=== PATIENT | female | born 1950 | race Caucasian/White ===

== ENCOUNTER → 2021-08-06 09:13 | Outpatient (CLI) | payer MEDICARE, SELFPAY ==
[2021-08-06 10:55] LABS: Add Manual Diff / Slide Review NO; Basophils Absolute Auto 100 /uL (0-100); Basophils Percent Auto 1.2 % (0-2); Eosinophils Absolute Auto 300 /uL (0-450); Eosinophils Percent Auto 7.6 % (2-4); Hemoglobin 12.3 g/dL (12.0-16.0); Lymphocytes Absolute Auto 1400 /uL (1100-4500); Lymphocytes Percent Auto 32.7 % (25-40); Mean Corpuscular HGB Conc 34.2 % (30-36); Mean Corpuscular Hemoglobin 31.3 PG (26-34); Mean Corpuscular Volume 91.5 fL (80-100); Monocytes Absolute Auto 500 /uL (0-900); Monocytes Percent Auto 11.9 % (3-14); Neutrophils Absolute Auto 1900 /uL (1500-7000); Neutrophils Percent Auto 46.6 % (50-75); Platelet Count 233 X10^3/uL (150-400); Red Blood Cell Count 3.93 X10^6/uL (4.0-5.2); Red Cell Distribution Width 12.8 % (11.6-14.8); White Blood Cell Count 4.1 X10^3/uL (4.5-11.0)
[2021-08-06 11:12] LABS: Alanine Aminotransferase 20 IU/L (<35); Albumin 4.4 g/dL (3.5-5.0); Albumin Globulin Ratio 1.5 (1.0-2.8); Alkaline Phosphatase 54 U/L (38-126); Aspartate Aminotransferase 29 IU/L (14-36); BUN Creatinine Ratio 22.4 (6-22); Bilirubin Total 0.4 mg/dL (0.2-1.3); Blood Urea Nitrogen 17 mg/dL (7-17); Calcium 9.3 mg/dL (8.4-10.2); Carbon Dioxide 25 mmol/L (22-32); Chloride 105 mmol/L (98-107); Estimated Glomerular Filt Rate > 60 mL/min (>60); Glucose 100 mg/dL (80-110); HEMOLYSIS < 15 (0-50); Potassium 4.8 mmol/L (3.4-5.1); Sodium 139 mmol/L (137-145); Total Protein 7.4 g/dL (6.3-8.2)
[2021-08-06 11:16] LABS: Prothrombin Time 11.5 SECONDS (10.1-12.7)
[2021-08-06 11:18] LABS: PTT Partial Thromboplastin Tim 32 SECONDS (26.4-36.2)
[2021-08-06 11:39] LABS: TSH w/ Reflex to FT4 3.38 uIU/mL (0.47-4.68)
== END ==
PROVIDERS: Referring Provider Physician Assistant; Visit Provider Physician Assistant
DX: T14.8XXA Other injury of unspecified body region, initial encounter (principal)
CPT/HCPCS: 36415; 80053; 84443; 85025; 85610; 85730

== ENCOUNTER → 2023-06-28 17:07 | Outpatient (CLI) | payer OTHER, SELFPAY ==
--- NOTE | 2023-06-28 | DI.MG.S_ITS ---
BILATERAL DIGITAL SCREENING MAMMOGRAM 3D/2D WITH CAD: 06/28/2023 CLINICAL: Routine screening. No prior exams were available for comparison. There are scattered areas of fibroglandular density in both breasts (category b / 25%-50% glandular tissue). Current study was also evaluated with a Computer Aided Detection (CAD) system. There are grouped calcifications in the right breast at 11 o'clock middle depth. No other significant masses, calcifications, or other findings are seen in either breast. IMPRESSION: INCOMPLETE: NEEDS ADDITIONAL IMAGING EVALUATION The grouped calcifications in the right breast are indeterminate. Magnification and lateromedial views as well as additional views with possible ultrasound are recommended. Based on the Tyrer Cuzick model (a risk assessment model) the patient's lifetime risk is 4.5% and her 10 year risk is 2.8%. According to the ACR, ACS, and NCCN guidelines, an annual breast MRI exam along with mammogram is recommended if the patient's lifetime risk is 20% or greater. This exam was interpreted at Station ID: [id number]. NOTE: For mammograms, a report in lay terms will be sent to the patient. Approximately 15% of breast malignancies will not be visualized mammographically. In the management of a palpable breast mass, a negative mammogram must not discourage biopsy of a clinically suspicious lesion. Electronically Signed By: Diane aviles/keith:07/04/2023 16:00:05 letter sent: Additional Imaging Needed ACR BI-RADS Category 0: Incomplete 3340F
== END ==
LOC: MAMMO 17:07
PROVIDERS: PCP Family Medicine; Referring Provider Family Medicine; Visit Provider Family Medicine
DX: Z12.31 Encounter for screening mammogram for malignant neoplasm of breast (principal); R92.323 Mammographic fibroglandular density, bilateral breasts
CPT/HCPCS: 77063; 77067

== ENCOUNTER → 2023-10-24 16:54 | Outpatient (CLI) | payer OTHER, SELFPAY ==
--- NOTE | 2023-10-24 16:56 | DI.RAD.S_ITS ---
PROCEDURE: XR FOOT LT MIN 3V INDICATIONS: Left foot and ankle injury TECHNIQUE: 3 views of the foot were acquired. COMPARISON: None. FINDINGS: Bones: No fractures or dislocations. No suspicious bony lesions. Soft tissues: No tibiotalar joint effusion. Achilles tendon appears normal. IMPRESSION: No acute osseous abnormality. If pain persists with conservative management, consider repeat x-ray in 10-14 days or cross-sectional imaging. Dictated by: Quentin Boyd M.D. on 10/24/2023 at 17:23 Approved by: Quentin Boyd M.D. on 10/24/2023 at 17:24
--- NOTE | 2023-10-24 16:56 | DI.RAD.S_ITS ---
PROCEDURE: XR ANKLE LT MIN 3V INDICATIONS: Left foot and ankle injury TECHNIQUE: 3 views of the ankle were acquired. COMPARISON: None. FINDINGS: Bones: No fractures or dislocations. Ankle mortise is normally aligned. No suspicious bony lesions. Prominent plantar calcaneal enthesophyte. Soft tissues: No tibiotalar joint effusion. Achilles tendon appears normal. IMPRESSION: No acute osseous abnormality. If pain persists with conservative management, consider repeat x-ray in 10-14 days or cross-sectional imaging. Dictated by: Quentin Boyd M.D. on 10/24/2023 at 17:23 Approved by: Quentin Boyd M.D. on 10/24/2023 at 17:23
== END ==
LOC: RAD 16:55
PROVIDERS: PCP Family Medicine; Referring Provider Physician Assistant Surgical; Visit Provider Physician Assistant Surgical
DX: S99.912A Unspecified injury of left ankle, initial encounter (principal); S99.922A Unspecified injury of left foot, initial encounter; X58.XXXA Exposure to other specified factors, initial encounter
CPT/HCPCS: 73610; 73630

== ENCOUNTER → 2023-11-07 08:10 | Outpatient (CLI) | payer OTHER, SELFPAY ==
--- NOTE | 2023-11-07 08:12 | DI.RAD.S_ITS ---
PROCEDURE: XR KNEE LT 3V INDICATIONS: left ankle and knee pain from fall TECHNIQUE: 3 views of the knee were acquired. COMPARISON: None. FINDINGS: Bones: No fractures or dislocations. No suspicious bony lesions. Soft tissues: No joint effusion. No suspicious soft tissue calcifications. IMPRESSION: No acute bony abnormality or significant effusion. Approved by: Barry Cuellar M.D. on 11/07/2023 at 18:01
--- NOTE | 2023-11-07 08:12 | DI.RAD.S_ITS ---
PROCEDURE: XR ANKLE LT MIN 3V INDICATIONS: left ankle and knee pain from fall TECHNIQUE: 3 views of the ankle were acquired. COMPARISON: [facility], CR, XR ANKLE LT MIN 3V, 10/24/2023, 16:54. FINDINGS: Bones: Small osteochondral defect in the dome of the talus noted medially. No evidence of fracture. Calcaneal spur moderate. Normal bone mineralization Soft tissues: No tibiotalar joint effusion. Achilles tendon appears normal. IMPRESSION: Probable talar osteochondral defect. Consider follow-up MRI Approved by: Barry Cuellar M.D. on 11/07/2023 at 18:01
[2023-11-07 09:44] LABS: Add Manual Diff / Slide Review NO; Basophils Absolute Auto 100 /uL (0-100); Basophils Percent Auto 1.3 % (0-2); Eosinophils Absolute Auto 200 /uL (0-450); Eosinophils Percent Auto 5.1 % (2-4); Hemoglobin 12.3 g/dL (12.0-16.0); Lymphocytes Absolute Auto 1300 /uL (1100-4500); Lymphocytes Percent Auto 27.9 % (25-40); Mean Corpuscular Volume 91.2 fL (80-100); Monocytes Absolute Auto 500 /uL (0-900); Monocytes Percent Auto 9.7 % (3-14); Neutrophils Absolute Auto 2700 /uL (1500-7000); Platelet Count 249 X10^3/uL (150-400); Red Blood Cell Count 3.95 X10^6/uL (4.0-5.2); Red Cell Distribution Width 12.9 % (11.6-14.8); White Blood Cell Count 4.8 X10^3/uL (4.5-11.0)
[2023-11-07 10:14] LABS: Alanine Aminotransferase 17 IU/L (<35); Albumin 4.2 g/dL (3.5-5.0); Albumin Globulin Ratio 1.6 (1.0-2.8); Alkaline Phosphatase 52 U/L (38-126); Aspartate Aminotransferase 24 IU/L (14-36); BUN Creatinine Ratio 15.2 (6-22); Bilirubin Total 0.4 mg/dL (0.2-1.3); Blood Urea Nitrogen 14 mg/dL (7-17); Calcium 9.3 mg/dL (8.4-10.2); Carbon Dioxide 24 mmol/L (22-32); Chloride 108 mmol/L (98-107); Estimated Glomerular Filt Rate > 60 mL/min (>60); Globulin 2.6 g/dL (1.7-4.1); Glucose 112 mg/dL (80-110); HEMOLYSIS < 15 (0-50); Potassium 4.4 mmol/L (3.4-5.1); Sodium 141 mmol/L (137-145); Total Protein 6.8 g/dL (6.3-8.2)
[2023-11-07 10:16] LABS: Hemoglobin A1C% w Est Avg Glu 5.9 % (4.0-6.0)
== END ==
PROVIDERS: PCP Family Medicine; Referring Provider Family Medicine; Visit Provider Family Medicine
DX: M25.562 Pain in left knee (principal); R73.9 Hyperglycemia, unspecified; M25.572 Pain in left ankle and joints of left foot; D64.9 Anemia, unspecified
CPT/HCPCS: 36415; 73562; 73610; 80053; 83036; 85025

== ENCOUNTER → 2023-11-07 12:15 | Outpatient (CLI) | payer OTHER, SELFPAY ==
--- NOTE | 2023-11-07 13:00 | DI.MRI.S_ITS ---
PROCEDURE: MR KNEE LT WO CON INDICATIONS: left knee pain from fall TECHNIQUE: Noncontrast sagittal PD fast spin echo and T2 fast spin echo with fat saturation, sagittal 3-D FLASH with fat saturation; coronal T1 spin echo and PD fast spin echo with fat saturation, and axial PD fast spin echo with fat saturation through the knee. COMPARISON: None. FINDINGS: Image quality: Excellent. There is an oblique tear involving the posterior horn and body of the patient's medial meniscus extending to the inferior joint surface. Lateral meniscus, ACL and PCL, collateral ligaments, and extensor mechanism appear within normal limits. 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 There is also some mild chondromalacia involving the patellofemoral joint. No significant knee joint effusion is seen. Tiny Jensen's cyst is present. There is some nonspecific marrow edema involving the posterior aspect of the medial tibial plateau likely degenerative in nature. IMPRESSION: 1. Oblique tear involving the posterior horn and body of the patient's medial meniscus extending to the inferior joint surface. 2. 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 3. Mild chondromalacia patellofemoral joint. 4. Tiny Jensen's cyst. 5. Nonspecific marrow edema posterior aspect of the medial tibial plateau felt to be degenerative in nature. Dictated by: Jesus Sloan M.D. on 11/07/2023 at 17:03 Approved by: Jesus Sloan M.D. on 11/07/2023 at 17:10
== END ==
PROVIDERS: PCP Family Medicine; Referring Provider Family Medicine; Visit Provider Family Medicine
DX: S83.242A Other tear of medial meniscus, current injury, left knee, initial encounter (principal); M22.42 Chondromalacia patellae, left knee; M25.562 Pain in left knee; M25.572 Pain in left ankle and joints of left foot; D64.9 Anemia, unspecified; R73.9 Hyperglycemia, unspecified; Z87.828 Personal history of other (healed) physical injury and trauma
CPT/HCPCS: 36415; 73562; 73610; 73721; 80053; 83036; 85025

== ENCOUNTER 2023-12-22 09:45 | Outpatient (RCR) | payer OTHER, SELFPAY ==
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
--- NOTE | 2023-12-08 16:46 | PT.OPPOC ---
Physical, Occupational & Speech Therapy At [facility] Current Diagnoses Other instability, left knee (12/13/23) Stiffness of unspecified knee, not elsewhere classified (12/13/23) Stiffness of left ankle, not elsewhere classified (12/13/23) Muscle wasting and atrophy, not elsewhere classified, left ankle and foot (12/13/23) Unspecified injury of left lower leg, subsequent encounter (12/13/23) Unspecified injury of left ankle, subsequent encounter (12/13/23) Unspecified injury of left foot, subsequent encounter (12/13/23) Visit Care Team Role Provider Type Alyson Garcia DO Attending Provider Physician Family Provider Primary Care Provider Referring Provider Specialty: Medical Address: [address] [place] [address], [address], [address] Email: [email or web address] Plan Of Care PT-OP-B Current Condition Start: 12/08/23 08:11 Freq: Status: Active Protocol: Document 12/08/23 10:30 [facility] (Rec: 12/08/23 10:46 [facility] [id number]) Current Condition History of Current Condition Onset Date 10/24/23 Current Complaints left ankle and knee pain, decreased mobility History of Current Condition Breann reports she slipped this summerOctober 23 in her kitchen and landed awkwardly rolling her left ankle and and left knee. She did have a fracture in her talus and a tear in the left meniscus. She used crutches SHe then slipped in November in her bathroom and tweaked her right knee. She is restricted with walking distance with just a few blocks and bending her knees cause pain. The medial left knee is very painful. THe left ankle pain increases with dorsiflexion PT-OP-T Assessment and Plan Start: 12/08/23 08:11 Freq: Status: Active Protocol: Document 12/08/23 10:30 [facility] (Rec: 12/13/23 16:31 [facility] [id number]) Physical Therapy Assessment Rehab Potential Rehabilitation Potential Excellent Evaluation Complexity Number of Personal Factors/Comorbidities 0 Number of Body Systems Impaired 1-2 Clinical Presentation at Evaluation Stable Impairments Impairments Activity Tolerance,Balance, Functional Activities, Functional Mobility,Gait,Pain, Soft Tissue Mobility,Strength, Tone Goals 3 Impairment Decreased ankle and knee strength Short Term Goal (STG) Breann is educated on a home strengthening program for ankle and knee strengthening STG Duration 4 weeks Mcc Goal (LTG) Breann presents with improved strength of the left ankle and knee and is able to support herself with transfers to and from a chair LTG Duration 8 weeks 2 Impairment Decreased L ankle and knee ROM Short Term Goal (STG) Breann is educated on a HEP for ankle and knee ROM STG Duration 4 weeks Janitorial Account Manager Goal (LTG) Breann presents with ankle ROM and knee ROM WFL LTG Duration 8 weeks 1 Impairment ankle and knee pain that limits walking distance to a few blocks only and with assistive device. Breann reports pain increases to 7/10 with walking Mcc Goal (LTG) Breann reports a overall reduction of pain and no longer experiences a increase in pain with walking up to a 1 /2 mile duration LTG Duration 8 weeks Assessment Summary Assessment Breann is a 73 year old female referred to PT with left sided ankle and knee pain after she twisted and slipped at home rolling her left and twisting her left ankle. She notes Xrays showed a small fracture in her talus and a tear in the left meniscus. She is allowed weight bearing as tolerated at this time. She has been using crutches. She did slip again in November and twisted her right knee. At this point is is restricted with her walking distance with just a few blocks and bending her knee causes pain. With exam today Breann is very limited with her ROM and guarded. I did start her with gentle ankle ROM and heel slides for her knee and this was fatiguing for her with her pain. She is also sore in her low back from her falls so we worked on supporting her back for her knee and ankle ROM exercises. She is weak in her quad on the left and tight in her hamstrings. Breann is a good candidate for PT working towards improved left ankle and knee ROM and strength and then progressing into balance training for fall prevention. Physical Therapy Plan Frequency and Duration Frequency of Treatment 2x/Week Duration of treatment (weeks) 8 Plan of Care Start Date 12/08/23 Plan of Care End Date 01/31/24 Therapeutic Interventions Therapeutic Interventions Home Exercise Program,Joint Mobilizations,Manual Therapy, Patient/Caregiver Education, Self-Care/Home Management,Soft Tissue Mobilization, Therapeutic Exercises Modalities Cold Pack/Ice Massage Next Visit Focus/Plan Next Note Type Treatment Note Next Visit Plan Begin bike for knee ROM next visit, continue with ROM exercises and gentle strengthening as tolerated Plan of Care Dates Plan of Care Start Date 12/08/23 Plan of Care End Date 01/31/24 Electronically Signed by: Dixie Mccray, PT 12/13/23 [id number] If you are in agreement with this Plan of Care, please return a signed and dated copy. I have reviewed this Plan of Care and certify that the skilled therapy services above are required to meet the patient?s needs. Physician Signature Date Printed Name and Credentials Clinical Instructor Signature Printed Name and Credentials
--- NOTE | 2023-12-13 17:04 | PT.OTN ---
Current Diagnoses Other instability, left knee (12/13/23) Stiffness of unspecified knee, not elsewhere classified (12/13/23) Stiffness of left ankle, not elsewhere classified (12/13/23) Muscle wasting and atrophy, not elsewhere classified, left ankle and foot (12/13/23) Unspecified injury of left lower leg, subsequent encounter (12/13/23) Unspecified injury of left ankle, subsequent encounter (12/13/23) Unspecified injury of left foot, subsequent encounter (12/13/23) Physical Therapy Treatment Note PT-OP-A Visit Information Start: 12/08/23 08:11 Freq: Status: Active Protocol: Document 12/13/23 16:49 [facility] (Rec: 12/13/23 17:04 [facility] [id number]) Out-Patient Physical Therapy Visit Information Visit Information Visit Type Treatment Note Visit Start Time 08:15 Visit Stop Time 09:00 Visit Number 2 PT-OP-B Current Condition Start: 12/08/23 08:11 Freq: Status: Active Protocol: Document 12/08/23 10:30 [facility] (Rec: 12/08/23 10:46 [facility] [id number]) Current Condition History of Current Condition Onset Date 10/24/23 Current Complaints left ankle and knee pain, decreased mobility History of Current Condition Breann reports she slipped this summerOctober 23 in her kitchen and landed awarkardly rolling her left ankle and and left knee. She did have a fracture in her talus and a tear in the left meniscus. She used crutches SHe then slipped in November in her bathroom and tweaked her right knee. She is restricted with walking distance with just a few blocks and bending her knees cause pain. The medial left knee is very painful. THe left ankle pain increases with dorsiflexion PT-OP-C Subjective Start: 12/08/23 08:11 Freq: Status: Active Protocol: Document 12/13/23 16:49 [facility] (Rec: 12/13/23 17:04 [facility] [id number]) OP-PT Subjective Patient Comments Patient Comments Breann reports she feels the heel slides are helpful and she is not a swollen, she has not yet tried her stationary bike at home PT-OP-G Mobility & Gait Start: 12/08/23 08:11 Freq: Status: Active Protocol: Document 12/08/23 10:30 [facility] (Rec: 12/13/23 16:42 [facility] [id number]) OP Mobility Evaluation Transfers Sit to Stand needs assisted device Bed to Chair Transfers needs assisted device Floor Transfers unable to do at this time OP Gait Assessment Assistive Devices Assistive Device Axillary Crutches Orthotic/Prosthetic Devices or Brace: No Gait Deviations General Gait Pattern Antalgic,Decreased Stride Length Factors Limiting Gait Function Factors Limiting Gait Function Decreased Strength,Limited Range of Motion,Pain PT-OP-J Posture/Palpation/Skin Start: 12/08/23 08:11 Freq: Status: Active Protocol: Document 12/08/23 10:30 [facility] (Rec: 12/13/23 16:45 [facility] [id number]) Palpation Assessment Location left quad tendon insertion Palpation Findings Soft Tissue Tightness, Tenderness left medial joint line Palpation Findings Tenderness left dorsal foot over the talus Palpation Findings Edema,Tenderness PT-OP-K Range of Motion Start: 12/08/23 08:11 Freq: Status: Active Protocol: Document 12/08/23 10:30 [facility] (Rec: 12/13/23 16:26 [facility] [id number]) Knee Goniometric Range of Motion Knee Right Knee ROM WFL Yes Left Knee ROM WFL No Patient Position Supine Flexion Active (degrees) 80 Extension Active (degrees) 10 Ankle and Foot Goniometric Range of Motion Ankle and Foot Left Ankle/Foot ROM WFL No Testing Position Supine Dorsiflexion with Knee Extended 5 Plantarflexion 10 Inversion 8 Eversion 8 Comments pain at the talus on dorsal aspect of foot with ankle DF PT-OP-M Strength Start: 12/13/23 16:26 Freq: Status: Active Protocol: Document 12/08/23 10:30 [facility] (Rec: 12/13/23 16:27 [facility] [id number]) Knee Strength Knee Manual Muscle Testing Left Flexion (S2) 2+ Poor+ Extension (L3) 2+ Poor+ Ankle/Foot Strength Ankle and Foot Manual Muscle Testing Left Dorsiflexion (L4) 3- Fair- Plantarflexion (S1) 3- Fair- Inversion 3 Fair Eversion (S1) 3 Fair PT-OP-Q Treatments Start: 12/08/23 08:11 Freq: Status: Active Protocol: Document 12/13/23 16:49 [facility] (Rec: 12/13/23 17:04 [facility] [id number]) Cardio Equipment Recumbent Elliptical (Biodex) Duration (Minutes) 6 Resistance 0 Other no resistance and with distraction pt tolerated well Therapeutic Exercises Supine Exercises quad sets Supine Exercise Name gave as HEP Side left Equipment Used towel under the left knee Reps/Minutes 10 reps holding 5 seconds supine dynamic hamstring stretch Supine Exercise Name gave as HEP Reps/Minutes x 10 reps of knee flexion/ extension supine heel slides Supine Exercise Name gave as HEP Side left Reps/Minutes x 20 supine ankle pumps and circles Supine Exercise Name GAVE A HEP Side bilateral Reps/Minutes 10-20 reps each direction Manual Therapy Treatment Soft Tissue Mobilization left quadricep Mobilization Type Myofascial Release Comments tenderness was less today over the quad and Breann was able to tolerate more quad mobility lateral calf Mobilization Type Myofascial Release Body Position Supine Comments good tolerance Manual Techniques gentle left ankle ROM into DF and gentle distraction of the ankle joint with active DF Comments Breann tolerated this well and felt the ankle distraction helped with increased mobility PT-OP-T Assessment and Plan Start: 12/08/23 08:11 Freq: Status: Active Protocol: Document 12/13/23 16:49 [facility] (Rec: 12/13/23 17:04 [facility] [id number]) Physical Therapy Assessment Assessment Summary Assessment Breann tolerated the biodex today as well as manual therapy techniques. She noted more ankle and knee mobility following therapy today. Physical Therapy Plan Frequency and Duration Frequency of Treatment 2x/Week Duration of treatment (weeks) 8 Plan of Care Start Date 12/08/23 Plan of Care End Date 01/31/24 Therapeutic Interventions Therapeutic Interventions Home Exercise Program,Joint Mobilizations,Manual Therapy, Patient/Caregiver Education, Self-Care/Home Management,Soft Tissue Mobilization, Therapeutic Exercises Modalities Cold Pack/Ice Massage
--- NOTE | 2023-12-15 14:06 | PT.OTN ---
Current Diagnoses Other instability, left knee (12/15/23) Stiffness of unspecified knee, not elsewhere classified (12/15/23) Stiffness of left ankle, not elsewhere classified (12/15/23) Muscle wasting and atrophy, not elsewhere classified, left ankle and foot (12/15/23) Unspecified injury of left lower leg, subsequent encounter (12/15/23) Unspecified injury of left ankle, subsequent encounter (12/15/23) Unspecified injury of left foot, subsequent encounter (12/15/23) Physical Therapy Treatment Note PT-OP-A Visit Information Start: 12/08/23 08:11 Freq: Status: Active Protocol: Document 12/15/23 13:05 [facility] (Rec: 12/15/23 13:29 [facility] [id number]) Out-Patient Physical Therapy Visit Information Visit Information Visit Type Treatment Note Visit Start Time 13:05 Visit Stop Time 13:45 Visit Number 3 PT-OP-B Current Condition Start: 12/08/23 08:11 Freq: Status: Active Protocol: Document 12/08/23 10:30 [facility] (Rec: 12/08/23 10:46 [facility] [id number]) Current Condition History of Current Condition Onset Date 10/24/23 Current Complaints left ankle and knee pain, decreased mobility History of Current Condition Breann reports she slipped this summerOctober 23 in her kitchen and landed awarkardly rolling her left ankle and and left knee. She did have a fracture in her talus and a tear in the left meniscus. She used crutches SHe then slipped in November in her bathroom and tweaked her right knee. She is restricted with walking distance with just a few blocks and bending her knees cause pain. The medial left knee is very painful. THe left ankle pain increases with dorsiflexion PT-OP-C Subjective Start: 12/08/23 08:11 Freq: Status: Active Protocol: Document 12/15/23 13:05 [facility] (Rec: 12/15/23 13:29 [facility] [id number]) OP-PT Subjective Patient Comments Patient Comments pt notes she felt less stress in the muscles after last visit. today she is walking with one crutch only and was able to grocery shop for the first time. Patient Reported Progress Improving PT-OP-G Mobility & Gait Start: 12/08/23 08:11 Freq: Status: Active Protocol: Document 12/08/23 10:30 [facility] (Rec: 12/13/23 16:42 [facility] [id number]) OP Mobility Evaluation Transfers Sit to Stand needs assisted device Bed to Chair Transfers needs assisted device Floor Transfers unable to do at this time OP Gait Assessment Assistive Devices Assistive Device Axillary Crutches Orthotic/Prosthetic Devices or Brace: No Gait Deviations General Gait Pattern Antalgic,Decreased Stride Length Factors Limiting Gait Function Factors Limiting Gait Function Decreased Strength,Limited Range of Motion,Pain PT-OP-J Posture/Palpation/Skin Start: 12/08/23 08:11 Freq: Status: Active Protocol: Document 12/08/23 10:30 [facility] (Rec: 12/13/23 16:45 [facility] [id number]) Palpation Assessment Location left quad tendon insertion Palpation Findings Soft Tissue Tightness, Tenderness left medial joint line Palpation Findings Tenderness left dorsal foot over the talus Palpation Findings Edema,Tenderness PT-OP-K Range of Motion Start: 12/08/23 08:11 Freq: Status: Active Protocol: Document 12/08/23 10:30 [facility] (Rec: 12/13/23 16:26 [facility] [id number]) Knee Goniometric Range of Motion Knee Right Knee ROM WFL Yes Left Knee ROM WFL No Patient Position Supine Flexion Active (degrees) 80 Extension Active (degrees) 10 Ankle and Foot Goniometric Range of Motion Ankle and Foot Left Ankle/Foot ROM WFL No Testing Position Supine Dorsiflexion with Knee Extended 5 Plantarflexion 10 Inversion 8 Eversion 8 Comments pain at the talus on dorsal aspect of foot with ankle DF PT-OP-M Strength Start: 12/13/23 16:26 Freq: Status: Active Protocol: Document 12/08/23 10:30 [facility] (Rec: 12/13/23 16:27 [facility] [id number]) Knee Strength Knee Manual Muscle Testing Left Flexion (S2) 2+ Poor+ Extension (L3) 2+ Poor+ Ankle/Foot Strength Ankle and Foot Manual Muscle Testing Left Dorsiflexion (L4) 3- Fair- Plantarflexion (S1) 3- Fair- Inversion 3 Fair Eversion (S1) 3 Fair PT-OP-Q Treatments Start: 12/08/23 08:11 Freq: Status: Active Protocol: Document 12/15/23 13:05 [facility] (Rec: 12/15/23 13:29 [facility] [id number]) Cardio Equipment Recumbent Elliptical (Biodex) Duration (Minutes) 6 Resistance 0 Other no resistance and with distraction pt tolerated well Therapeutic Exercises Supine Exercises quad sets Side left Reps/Minutes x 10 reps supine heel slides Side left Reps/Minutes x 10 Standing Exercises standing heel lifts Standing Exercise Name gave for HEP Reps/Minutes x 20 standing calf stretch Standing Exercise Name gave for HEP Reps/Minutes holding 30 sec each x 2 standing leon stretch Reps/Minutes static 30 sec then dynamic x 20 reps Comments lding both static and then dynamic movement Manual Therapy Treatment Soft Tissue Mobilization left quadricep Mobilization Type Myofascial Release Comments tenderness was less today over the quad and Breann was able to tolerate more quad mobility lateral calf Mobilization Type Myofascial Release Body Position Supine Comments good tolerance PT-OP-T Assessment and Plan Start: 12/08/23 08:11 Freq: Status: Active Protocol: Document 12/15/23 13:05 [facility] (Rec: 12/15/23 14:05 [facility] [id number]) Physical Therapy Assessment Assessment Summary Assessment Breann is doing better today and is down to one crutch only. I did instruct her to use crutch in her right hand to support the left knee and hip as she was using it on the left and leaning to the left. She was able to start with gentle calf stretches today and standing heel lifts. The biodex was also easier for her today Physical Therapy Plan Frequency and Duration Frequency of Treatment 2x/Week Duration of treatment (weeks) 8 Plan of Care Start Date 12/08/23 Plan of Care End Date 01/31/24 Therapeutic Interventions Therapeutic Interventions Home Exercise Program,Joint Mobilizations,Manual Therapy, Patient/Caregiver Education, Self-Care/Home Management,Soft Tissue Mobilization, Therapeutic Exercises Modalities Cold Pack/Ice Massage Next Visit Focus/Plan Next Note Type Treatment Note Next Visit Plan trial up upright bike if available next visit, continue progressing gentle ROM and strengthening for Breann's left ankle and knee
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
--- NOTE | 2023-12-22 10:33 | PT.OTN ---
Current Diagnoses Other instability, left knee (12/22/23) Stiffness of unspecified knee, not elsewhere classified (12/22/23) Stiffness of left ankle, not elsewhere classified (12/22/23) Muscle wasting and atrophy, not elsewhere classified, left ankle and foot (12/22/23) Unspecified injury of left lower leg, subsequent encounter (12/22/23) Unspecified injury of left ankle, subsequent encounter (12/22/23) Unspecified injury of left foot, subsequent encounter (12/22/23) Physical Therapy Treatment Note PT-OP-A Visit Information Start: 12/08/23 08:11 Freq: Status: Active Protocol: Document 12/22/23 09:50 SP (Rec: 12/22/23 10:35 SP [id number]) Out-Patient Physical Therapy Visit Information Visit Information Visit Type Treatment Note Visit Start Time 09:50 Visit Stop Time 10:33 Visit Number 5 Number of OUTPLACEMENT CONSULTANT Visits 1 Evaluation Information Evaluation Date 12/08/23 PT-OP-B Current Condition Start: 12/08/23 08:11 Freq: Status: Active Protocol: Document 12/08/23 10:30 [facility] (Rec: 12/08/23 10:46 [facility] [id number]) Current Condition History of Current Condition Onset Date 10/24/23 Current Complaints left ankle and knee pain, decreased mobility History of Current Condition Breann reports she slipped this summerOctober 23 in her kitchen and landed awarkardly rolling her left ankle and and left knee. She did have a fracture in her talus and a tear in the left meniscus. She used crutches SHe then slipped in November in her bathroom and tweaked her right knee. She is restricted with walking distance with just a few blocks and bending her knees cause pain. The medial left knee is very painful. THe left ankle pain increases with dorsiflexion PT-OP-C Subjective Start: 12/08/23 08:11 Freq: Status: Active Protocol: Document 12/22/23 09:50 SP (Rec: 12/22/23 10:35 SP [id number]) OP-PT Subjective Patient Comments Patient Comments Pt arrives with 1 crutch in UE inconsistant use 2pt gait vs carrying the crutch while demonstrating lateral SB trunk lean and reports thought the resisted band during squats and use of shuttle press machine pushing with her legs was to much on her back after left appt. Hasn't been doing her exercises other than AROM ankles due to back pain and needed her for help with transfers to toilet and walking. She does report her Left ankle better and both feet though. Pt reports will be cancelling all the scheduled OUTPLACEMENT CONSULTANT appts duevto transferring physical therapy care to a [facility] practice of which will have low to no cost to her for services unlike her high copay here at [facility]. Pt stated she starts next week with them but will keep her appt with PT [facility] for DC. PT-OP-G Mobility & Gait Start: 12/08/23 08:11 Freq: Status: Active Protocol: Document 12/08/23 10:30 [facility] (Rec: 12/13/23 16:42 [facility] [id number]) OP Mobility Evaluation Transfers Sit to Stand needs assisted device Bed to Chair Transfers needs assisted device Floor Transfers unable to do at this time OP Gait Assessment Assistive Devices Assistive Device Axillary Crutches Orthotic/Prosthetic Devices or Brace: No Gait Deviations General Gait Pattern Antalgic,Decreased Stride Length Factors Limiting Gait Function Factors Limiting Gait Function Decreased Strength,Limited Range of Motion,Pain PT-OP-J Posture/Palpation/Skin Start: 12/08/23 08:11 Freq: Status: Active Protocol: Document 12/08/23 10:30 [facility] (Rec: 12/13/23 16:45 [facility] [id number]) Palpation Assessment Location left quad tendon insertion Palpation Findings Soft Tissue Tightness, Tenderness left medial joint line Palpation Findings Tenderness left dorsal foot over the talus Palpation Findings Edema,Tenderness PT-OP-K Range of Motion Start: 12/08/23 08:11 Freq: Status: Active Protocol: Document 12/08/23 10:30 [facility] (Rec: 12/13/23 16:26 [facility] [id number]) Knee Goniometric Range of Motion Knee Right Knee ROM WFL Yes Left Knee ROM WFL No Patient Position Supine Flexion Active (degrees) 80 Extension Active (degrees) 10 Ankle and Foot Goniometric Range of Motion Ankle and Foot Left Ankle/Foot ROM WFL No Testing Position Supine Dorsiflexion with Knee Extended 5 Plantarflexion 10 Inversion 8 Eversion 8 Comments pain at the talus on dorsal aspect of foot with ankle DF PT-OP-M Strength Start: 12/13/23 16:26 Freq: Status: Active Protocol: Document 12/08/23 10:30 [facility] (Rec: 12/13/23 16:27 [facility] [id number]) Knee Strength Knee Manual Muscle Testing Left Flexion (S2) 2+ Poor+ Extension (L3) 2+ Poor+ Ankle/Foot Strength Ankle and Foot Manual Muscle Testing Left Dorsiflexion (L4) 3- Fair- Plantarflexion (S1) 3- Fair- Inversion 3 Fair Eversion (S1) 3 Fair PT-OP-Q Treatments Start: 12/08/23 08:11 Freq: Status: Active Protocol: Document 12/22/23 09:50 SP (Rec: 12/22/23 10:35 SP [id number]) Therapeutic Exercises Supine Exercises double knee to chest Equipment Used BUEs support BLEs Reps/Minutes hold 1 min Comments cued TA supine heel slides Supine Exercise Name TA Side left Reps/Minutes x 10 supine ankle pumps and circles Supine Exercise Name ed TA then Side bilateral Reps/Minutes 10 reps each direction Therapeutic Activity Therapeutic Activity TA trng & bed mobility Name TA trng /c log roll technique Sup<>SL>Sit Reps/Minutes 1 reps each direction Comments Cued TA gentle draw in engagement before mobility, maintain log roll and bridge depth needed to lateral scoot sup safe distance away from EOtable >SL>sit. Improved less reports of pain with reminders TA facilitation, tends to move fast and forget. Manual Therapy Treatment Soft Tissue Mobilization B ES, QL, glut max & Med Body Location CP on back during manual Mobilization Type Myofascial Release,Rolling Intensity/Depth Superficial Body Position Sidelying Comments gentle STMs and pelvic PNF anterior elevation, posterior depression for pelvis mobility to support stabililty to walk . left quadricep Mobilization Type Myofascial Release Comments tenderness was less today over the quad and Breann was able to tolerate more quad mobility lateral calf Body Location peroneals Mobilization Type Myofascial Release Body Position Supine Comments little sensitivity to pressure today Joint Mobilizations ankle jts Joint talocrual PA, calcaneal distraction med /lat Grade II Comments gentle movement PT-OP-T Assessment and Plan Start: 12/08/23 08:11 Freq: Status: Active Protocol: Document 12/22/23 09:50 SP (Rec: 12/22/23 10:35 SP [id number]) Physical Therapy Assessment Goals 3 Impairment Decreased ankle and knee strength Short Term Goal (STG) Breann is educated on a home strengthening program for ankle and knee strengthening 12/22/23: DKTC, supine ankle AROM, TA heel slides. STG Duration 4 weeks progressing 12/22/23 Fpc Goal (LTG) Breann presents with improved strength of the left ankle and knee and is able to support herself with transfers to and from a chair 12/22/23: slow progress since last tx due to back pain, currently performing Yang ankle AROM. LTG Duration 8 weeks 2 Impairment Decreased L ankle and knee ROM Short Term Goal (STG) Breann is educated on a HEP for ankle and knee ROM 12/22/23: Instructed ankle and heel slide AROM with cues for TA spinal support. STG Duration 4 weeks Director Of Distance Learning Goal (LTG) Breann presents with ankle ROM and knee ROM WFL LTG Duration 8 weeks 1 Impairment ankle and knee pain that limits walking distance to a few blocks only and with assistive device. Breann reports pain increases to 7/10 with walking Fpc Goal (LTG) Breann reports a overall reduction of pain and no longer experiences a increase in pain with walking up to a 1 /2 mile duration 12/22/23: walking short distances using 1 crutch in RUE but instructed use Bilateral crutches at this time for midline spinal support and support to L knee and Bilateral ankles. LTG Duration 8 weeks slow progression 12/31 Assessment Summary Assessment OUTPLACEMENT CONSULTANT discussed call insurance, unsure you can be seen for same injury at 2 different PT clinics. Pt reported back pain with position changes sup <>sit, instructed TA training, log roll technique, improves pain reduction with cues for slower pacing and use of abdominal engagement needed to support spinal stability during all mobility. Discussed use of bilateral crutches vs 1 crutch arrived with to support midline spinal alignment and PNF hip anterior elevation advancement and posterior depression deceleration to heel strike support to B ankles at this time. Pt good feedback to light manual STMs to support pelvic mobility and to allow proper gait and LE acceptance. Improved form during ther ex with cues for TA engagment to allow ankle and knee AROM. Good feedback response to DKTC stretch. Pt discussed will start performing past back HEP . OUTPLACEMENT CONSULTANT suggested to review with next therapist for safety and proper form. Physical Therapy Plan Frequency and Duration Frequency of Treatment 2x/Week Duration of treatment (weeks) 8 Plan of Care Start Date 12/08/23 Plan of Care End Date 01/31/24 Therapeutic Interventions Therapeutic Interventions Home Exercise Program,Joint Mobilizations,Manual Therapy, Patient/Caregiver Education, Self-Care/Home Management,Soft Tissue Mobilization, Therapeutic Exercises Modalities Cold Pack/Ice Massage Next Visit Focus/Plan Next Note Type Treatment Note Next Visit Plan Assess response to manual, TA re-education for proper form B ankle and L knee HEP. Continue with upright bike for warm up if tolerated, review standing squats with theraband around thighs if tolerated and add in lateral steps with TB if Breann is able ready. continue with exercise progression
--- NOTE | 2023-12-28 13:17 | PT.OPDS ---
Current Diagnoses Other instability, left knee (12/22/23) Stiffness of unspecified knee, not elsewhere classified (12/22/23) Stiffness of left ankle, not elsewhere classified (12/22/23) Muscle wasting and atrophy, not elsewhere classified, left ankle and foot (12/22/23) Unspecified injury of left lower leg, subsequent encounter (12/22/23) Unspecified injury of left ankle, subsequent encounter (12/22/23) Unspecified injury of left foot, subsequent encounter (12/22/23) Visit Care Team Role Provider Type Alyson Garcia DO Attending Provider Physician Family Provider Primary Care Provider Referring Provider Specialty: Medical Address: [address] [place] [address], [address], [place], [address] Email: [email or web address] Visit Number Visit Number 5 Discharge Summary PT-OP-B Current Condition Start: 12/08/23 08:11 Freq: Status: Active Protocol: Document 12/08/23 10:30 [facility] (Rec: 12/08/23 10:46 [facility] [id number]) Current Condition History of Current Condition Onset Date 10/24/23 Current Complaints left ankle and knee pain, decreased mobility History of Current Condition Breann reports she slipped this summerOctober 23 in her kitchen and landed awarkardly rolling her left ankle and and left knee. She did have a fracture in her talus and a tear in the left meniscus. She used crutches SHe then slipped in November in her bathroom and tweaked her right knee. She is restricted with walking distance with just a few blocks and bending her knees cause pain. The medial left knee is very painful. THe left ankle pain increases with dorsiflexion PT-OP-C Subjective Start: 12/08/23 08:11 Freq: Status: Active Protocol: Document 12/22/23 09:50 SP (Rec: 12/22/23 10:35 SP [id number]) OP-PT Subjective Patient Comments Patient Comments Pt arrives with 1 crutch in UE inconsistant use 2pt gait vs carrying and reports thought the resisted band during squats and use of shuttle press machine pushing with her legs was to much on her back after left appt. Hasn't been doing her exercises other than AROM ankles due to back pain and needed her for help with transfers to toilet and walking. She does report her Left ankle better and both feet though. Pt reports will be cancelling all the scheduled NEWSPAPER CORRESPONDENT appts duevto transferring physical therapy care to a [facility] practice of which will have low to no cost to her for services unlike her high copay here at [facility]. Pt stated she starts next week with them but will keep her appt with PT [facility]ie for DC. PT-OP-G Mobility & Gait Start: 12/08/23 08:11 Freq: Status: Active Protocol: Document 12/08/23 10:30 [facility] (Rec: 12/13/23 16:42 [facility] [id number]) OP Mobility Evaluation Transfers Sit to Stand needs assisted device Bed to Chair Transfers needs assisted device Floor Transfers unable to do at this time OP Gait Assessment Assistive Devices Assistive Device Axillary Crutches Orthotic/Prosthetic Devices or Brace: No Gait Deviations General Gait Pattern Antalgic,Decreased Stride Length Factors Limiting Gait Function Factors Limiting Gait Function Decreased Strength,Limited Range of Motion,Pain PT-OP-J Posture/Palpation/Skin Start: 12/08/23 08:11 Freq: Status: Active Protocol: Document 12/08/23 10:30 [facility] (Rec: 12/13/23 16:45 [facility] [id number]) Palpation Assessment Location left quad tendon insertion Palpation Findings Soft Tissue Tightness, Tenderness left medial joint line Palpation Findings Tenderness left dorsal foot over the talus Palpation Findings Edema,Tenderness PT-OP-K Range of Motion Start: 12/08/23 08:11 Freq: Status: Active Protocol: Document 12/08/23 10:30 [facility] (Rec: 12/13/23 16:26 [facility] [id number]) Knee Goniometric Range of Motion Knee Right Knee ROM WFL Yes Left Knee ROM WFL No Patient Position Supine Flexion Active (degrees) 80 Extension Active (degrees) 10 Ankle and Foot Goniometric Range of Motion Ankle and Foot Left Ankle/Foot ROM WFL No Testing Position Supine Dorsiflexion with Knee Extended 5 Plantarflexion 10 Inversion 8 Eversion 8 Comments pain at the talus on dorsal aspect of foot with ankle DF PT-OP-M Strength Start: 12/13/23 16:26 Freq: Status: Active Protocol: Document 12/08/23 10:30 [facility] (Rec: 12/13/23 16:27 [facility] [id number]) Knee Strength Knee Manual Muscle Testing Left Flexion (S2) 2+ Poor+ Extension (L3) 2+ Poor+ Ankle/Foot Strength Ankle and Foot Manual Muscle Testing Left Dorsiflexion (L4) 3- Fair- Plantarflexion (S1) 3- Fair- Inversion 3 Fair Eversion (S1) 3 Fair PT-OP-T Assessment and Plan Start: 12/08/23 08:11 Freq: Status: Active Protocol: Document 12/28/23 13:16 [facility] (Rec: 12/28/23 13:17 [facility] [id number]) Physical Therapy Assessment Assessment Summary Assessment NEWSPAPER CORRESPONDENT discussed call insurance, unsure you can be seen for same injury at 2 different PT clinics. Pt reported back pain with position changes sup <>sit, instructed TA training, log roll technique, improves pain reduction with cues for slower pacing and use of abdominal engagement needed to support spinal stability during all mobility. Discussed use of bilateral crutches vs 1 crutch arrived with to support midline spinal alignment and PNF hip anterior elevation advancement and posterior depression deceleration to heel strike support to B ankles at this time. Pt good feedback to light manual STMs to support pelvic mobility and to allow proper gait and LE acceptance. Improved form during ther ex with cues for TA engagment to allow ankle and knee AROM. Good feedback response to DKTC stretch. Pt discussed will start performing past back HEP . NEWSPAPER CORRESPONDENT suggested to review with next therapist for safety and proper form. addendum, after last vist pt called to cx the remaining PT visits as she will be seen with a new provider with improved insurance coverage Physical Therapy Plan Discharge Physical Therapy Discharge Reasons No Longer Attending PT Discharge Comments Breann is changing providers due to the cost of PT
== END 2024-01-03 09:33 | disposition home or self-care (01) ==
LOC: PHYS 09:45
PROVIDERS: Family Provider Family Medicine; PCP Family Medicine; Referring Provider Family Medicine; Visit Provider Family Medicine
DX: S99.912D Unspecified injury of left ankle, subsequent encounter (principal); S99.922D Unspecified injury of left foot, subsequent encounter; S89.92XD Unspecified injury of left lower leg, subsequent encounter; M25.672 Stiffness of left ankle, not elsewhere classified; M25.669 Stiffness of unspecified knee, not elsewhere classified; M25.362 Other instability, left knee; M62.572 Muscle wasting and atrophy, not elsewhere classified, left ankle and foot
CPT/HCPCS: 97110; 97140; 97161

== ENCOUNTER → 2024-09-03 07:02 | Outpatient (CLI) | payer MEDICARE, SELFPAY ==
[2024-09-03 07:43] LABS: Add Manual Diff / Slide Review NO; Basophils Absolute Auto 0 /uL (0-100); Basophils Percent Auto 1.3 % (0-2); Eosinophils Absolute Auto 200 /uL (0-450); Eosinophils Percent Auto 5.4 % (2-4); Hematocrit 39.9 % (36-46); Hemoglobin 13.7 g/dL (12.0-16.0); Lymphocytes Absolute Auto 1100 /uL (1100-4500); Lymphocytes Percent Auto 30.4 % (25-40); Mean Corpuscular HGB Conc 34.4 % (30-36); Mean Corpuscular Hemoglobin 31.5 PG (26-34); Mean Corpuscular Volume 91.6 fL (80-100); Monocytes Absolute Auto 400 /uL (0-900); Monocytes Percent Auto 10.2 % (3-14); Neutrophils Absolute Auto 2000 /uL (1500-7000); Neutrophils Percent Auto 52.7 % (50-75); Platelet Count 256 X10^3/uL (150-400); Red Blood Cell Count 4.36 X10^6/uL (4.0-5.2); Red Cell Distribution Width 13.5 % (11.6-14.8); White Blood Cell Count 3.8 X10^3/uL (4.5-11.0)
[2024-09-03 07:55] LABS: Hemoglobin A1C% w Est Avg Glu 5.8 % (4.0-6.0)
[2024-09-03 08:04] LABS: Alanine Aminotransferase 26 IU/L (<35); Albumin 4.4 g/dL (3.5-5.0); Albumin Globulin Ratio 1.4 (1.0-2.8); Alkaline Phosphatase 56 U/L (38-126); Aspartate Aminotransferase 30 IU/L (14-36); BUN Creatinine Ratio 26.4 (6-22); Bilirubin Total 0.4 mg/dL (0.2-1.3); Blood Urea Nitrogen 23 mg/dL (7-17); Calcium 9.6 mg/dL (8.4-10.2); Carbon Dioxide 25 mmol/L (22-32); Chloride 105 mmol/L (98-107); Cholesterol 226 mg/dL (140-199); Estimated Glomerular Filt Rate > 60 mL/min (>60); Globulin 3.1 g/dL (1.7-4.1); Glucose 114 mg/dL (70-99); HDL Cholesterol 49 mg/dL (40-60); HEMOLYSIS < 15 (0-50); LDL Cholesterol Calculated 149 mg/dL (<100); Potassium 4.3 mmol/L (3.4-5.1); Sodium 137 mmol/L (137-145); Total Protein 7.5 g/dL (6.3-8.2); Triglycerides 140 mg/dL (35-150)
[2024-09-03 08:20] LABS: Vitamin D 25 Hydroxy (D3) 50.5 ng/mL (30.0-100.0)
[2024-09-03 08:39] LABS: Ferritin 130 ng/mL (11-264)
[2024-09-04 04:36] LABS: CRP, High Sensitivity 0.79 mg/L (0.00-3.00)
== END ==
LOC: LAB 07:03
PROVIDERS: Family Provider Family Medicine; PCP Family Medicine; Referring Provider Family Medicine; Visit Provider Family Medicine
DX: D64.9 Anemia, unspecified (principal); R53.83 Other fatigue; M81.0 Age-related osteoporosis without current pathological fracture; Z79.890 Hormone replacement therapy
CPT/HCPCS: 36415; 80053; 80061; 82306; 82728; 83036; 83525; 85025; 86140